=== PATIENT | male | born 1970 | race Caucasian/White ===

== ENCOUNTER 2021-01-02 06:26 | Observation (INO) ==
[2021-01-02] MEDS ORDERED: Ondansetron 4 MG/2 ML VIAL IVP PRN ×2 (07:13→13:57)
[2021-01-02] MEDS ORDERED: *HR* OxyCODONE Immed Rel 5 MG TABLET PO PRN ×2 (07:13→13:57)
[2021-01-02] MEDS ORDERED: Dexamethasone 4 MG/ML VIAL ONE (07:21)
[2021-01-02] MEDS ORDERED: *HR* Midazolam HCl 2 MG/2 ML VIAL ONE (07:21)
[2021-01-02] MEDS ORDERED: *HR* Rocuronium Bromide 50 MG/5 ML VIAL ONE (07:21)
[2021-01-02] MEDS ORDERED: *HR* Succinylcholine 200 MG/10 ML VIAL IVP ONE (07:21)
[2021-01-02] MEDS ORDERED: Lidocaine HCL 4 ML Topical Solution (Laryng-O-Jet Kit Sterile Pak) TP ONE (07:21)
[2021-01-02] MEDS ORDERED: Lidocaine -MPF 2% 2 ML VIAL ONE (07:21)
[2021-01-02] MEDS ORDERED: *HR* FentaNYL (PF) 100 MCG/2 ML VIAL ONE (07:21)
[2021-01-02] MEDS ORDERED: Ondansetron 4 MG/2 ML VIAL ONE (07:21)
[2021-01-02] MEDS ORDERED: *HR* Propofol 200 MG/20 ML VIAL IVP ONE (07:21)
[2021-01-02] MEDS ORDERED: CeFAZolin Syr 2,000MG/20 ML 2,000 MG/20 ML SYRINGE IVPB ONE (07:22)
[2021-01-02] MEDS ORDERED: *HR* Remifentanil 1 MG VIAL IVP ONE ×2 (07:22→07:23)
[2021-01-02] MEDS: Ringers Solution, Lactated 1,000 ML IVC SCH ×2 (07:34→13:28)
[2021-01-02] MEDS ORDERED: Bacitracin 50,000 UNIT, Polymyxin B Sulfate 500,000 UNIT, Sodium Chloride IRRigation 1,... IR ONE (07:45)
[2021-01-02] MEDS ORDERED: ceFAZolin 1,000 MG in Water for inj. (sterile) 10 ML IVP ONE (08:56)
[2021-01-02] MEDS ORDERED: Sugammadex Sodium 200 MG/2 ML VIAL IV ONE (09:44)
[2021-01-02] MEDS ORDERED: *HR* HYDROMORPHONE 2 MG/ML VIAL ONE (11:02)
[2021-01-02] MEDS: *HR* HYDROmorphone (PF) 1 MG/ML SYRINGE IVP PRN ×2 (12:58→13:04)
[2021-01-02] MEDS ORDERED: Naloxone 0.4 MG/ML INJ IVP PRN (13:57)
[2021-01-02] MEDS ORDERED: *HR* HYDROcodone/Acet 5/325 mg TABLET PO PRN (13:57)
[2021-01-02] MEDS ORDERED: Ringers Solution, Lactated 1,000 ML IVC SCH (13:57)
[2021-01-02] MEDS: ALPRAZolam 0.25 MG TABLET PO SCH ×2 (14:48→20:31)
[2021-01-02] MEDS: CeFAZolin 2 GM/120 ML BAG IVPB SCH (18:23)
[2021-01-03] MEDS: CeFAZolin 2 GM/120 ML BAG IVPB SCH (00:58)
[2021-01-03] MEDS: ALPRAZolam 0.25 MG TABLET PO SCH ×2 (02:10→08:23)
[2021-01-03] MEDS: Acetaminophen 325 MG TABLET PO PRN ×3 (08:22→22:56)
[2021-01-03] MEDS ORDERED: ALPRAZolam 0.25 MG TABLET PO PRN (10:14)
[2021-01-03] MEDS ORDERED: Temazepam 15 MG CAPSULE PO PRN (18:04)
[2021-01-04] MEDS: Acetaminophen 325 MG TABLET PO PRN ×2 (07:18→14:29)
[2021-01-04 12:25] VITALS: BP 128/74
== END 2021-01-04 15:45 | disposition home or self-care (01) ==
LOC: SAMDAY 06:26 → 3NENU 06:26
PROVIDERS: ADMIT Orthopaedic Surgery Orthopaedic Surgery of the Spine; ATTEND Orthopaedic Surgery Orthopaedic Surgery of the Spine